=== PATIENT | female | born 1980 | race Asian ===

== ENCOUNTER → 2016-04-10 | Outpatient (CLI) | payer OTHER ==
[~2016-04-10] MED LIST: PRENTAB26 PO; VITAMINS D; fish oil
[2016-04-10 16:27] LABS: URINE APPEARANCE CLEAR (CLEAR); URINE BILIRUBIN NEG (NEG); URINE COLOR YELLOW; URINE EPITHELIAL CELL AUTO >30 /lpf (0-5); URINE NITRITE NEG (NEG); URINE PH 6.5 (4.5-7.5); URINE SPECIFIC GRAVITY 1.017 (1.000-1.030); UROBILINOGEN NEG (NEG)
[2016-04-10 16:28] LABS: MANUAL MICROSCOPIC REQUIRED? NO; REVIEW REQ? NO
[2016-04-10 16:34] LABS: GTGD 50 Grams
== END | disposition home or self-care (01) ==
LOC: C.LAB1850 13:35
PROVIDERS: ATTEND Obstetrics & Gynecology
DX: O09.529 Supervision of elderly multigravida, unspecified trimester (principal); Z3A.00 Weeks of gestation of pregnancy not specified

== ENCOUNTER → 2016-06-03 | Outpatient (CLI) | payer OTHER | END | disposition home or self-care (01) | LOC: C.LABSPEC 15:10 | PROVIDERS: ATTEND Obstetrics & Gynecology | DX: Z34.83 Encounter for supervision of other normal pregnancy, third trimester (principal) ==

== ENCOUNTER 2016-07-02 04:57 | Inpatient (IN) | payer OTHER ==
[~2016-07-02] VITALS: Ht 157.5 cm; Wt 66.4 kg
[2016-07-02] MEDS ORDERED: LACTATED RINGER'S 1000ML 1,000 ML IV PRN (09:29)
[2016-07-02] MEDS ORDERED: LACTATED RINGER'S 1000ML 1,000 ML IV SCH (09:29)
[2016-07-02] MEDS ORDERED: LACTATED RINGER'S 1000ML 500 ML IV PRN (09:32)
[2016-07-02] MEDS ORDERED: OXYTOCIN 30 UNITS/500ML NSS IV PRN ×3 (09:45→15:15)
[2016-07-02] MEDS ORDERED: PATIENT'S ALLERGY INFO NEEDS ENTERED SCH (10:00)
[2016-07-02 10:02] LABS: HEMATOCRIT 33.1 % (37-47); MEAN CELL VOLUME 92.2 fL (80-100); MEAN CORPUSCULAR HEMOGLOBIN 32.3 pg (25-34); MEAN PLATELET VOLUME 10.9 fL (7.4-10.4); PLATELET COUNT 156 K/uL (130-400); RED BLOOD COUNT 3.59 M/uL (4.2-5.4); WHITE BLOOD COUNT 13.09 K/uL (4.8-10.8)
[2016-07-02] MEDS ORDERED: PRENTAB26 PO (11:03)
[2016-07-02] MEDS ORDERED: VITAMINS D (11:03)
[2016-07-02] MEDS ORDERED: fish oil (11:03)
[2016-07-02 11:34] VITALS: Ht 157.5 cm; Wt 66.4 kg
[2016-07-02] MEDS ORDERED: EpHEDrine SULFATE INJ 50 MG/ML AMP ONE (13:49)
[2016-07-02] MEDS ORDERED: BUPIVACAINE 0.25% 30 ML VIAL ONE (13:49)
[2016-07-02] MEDS ORDERED: FENTANYL CITRATE INJ 50 MCG/1 ML 2 ML VIAL ONE (13:50)
[2016-07-02] MEDS ORDERED: FENTANYL 2MCG/ML ROPIV 1.25MG/ML 100ML BAG EPI ONE (13:50)
[2016-07-02] MEDS ORDERED: NURSING VERBAL MED ORDER ONE (14:15)
[2016-07-02] MEDS ORDERED: BUTORPHANOL TARTRATE 1 MG/ML VIAL IV ONE (14:20)
[2016-07-02] MEDS ORDERED: BUTORPHANOL TARTRATE 1 MG/ML VIAL ONE (14:24)
[2016-07-02] MEDS ORDERED: METHYLERGONOVINE MALEATE 0.2 MG/ML AMP ONE (15:10)
[2016-07-02] MEDS ORDERED: OXYCODONE/ACETAMINOPHEN 5-325 TAB PO PRN ×2 (15:15)
[2016-07-02] MEDS ORDERED: SUPERCREAM 0.870 % 15GM JAR EXT PRN ×2 (15:15)
[2016-07-02] MEDS ORDERED: DIPHTHERIA/TETANUS/PERTUSSIS 0.5 ML SYR/VIAL IM. ONE ×2 (15:15)
[2016-07-02] MEDS ORDERED: ACETAMINOPHEN 325 MG TAB PO PRN ×2 (15:15)
[2016-07-02] MEDS ORDERED: LANOLIN OINT EXT PRN ×4 (15:15)
[2016-07-02] MEDS ORDERED: METHYLERGONOVINE MALEATE 0.2 MG/ML AMP IM ONE ×2 (15:15)
[2016-07-02] MEDS ORDERED: BENZOCAINE 20% AER SPR 82.5 GM CAN EXT PRN ×2 (15:15)
[2016-07-02] MEDS ORDERED: ACETAMINOPHEN/CODEINE 300/30MG TAB PO PRN ×4 (15:15)
[2016-07-02] MEDS ORDERED: IBUPROFEN 600 MG TAB PO PRN (15:15)
[2016-07-02] MEDS ORDERED: HYDROCORTISONE ACETATE 25 MG SUPP PR PRN ×2 (15:15)
--- NOTE | 2016-07-02 15:26 | DELIVERY SUMMARY ---
DATE OF OPERATION: 07/02/2016 DELIVERY NOTE DATE OF DELIVERY: 07/02/2016. The patient is a 36-year-old 4, para 3, 1 spontaneous AB. Blood type is B positive. She is rubella immune. Beta strep negative. Her due date 07/03/2016. She was scheduled for induction today. Called early this morning said she thought her water had broken, came to maternity. She was Nitrazine positive, but she did have a bulging amniotic sac. She was given options for pain control, given IV and then was augmented with IV Pitocin. When she established a good regular labor per pattern at about 8 cm, membranes were ruptured surgically. Fluid was clear. She did receive 1 dose of IV Stadol. She went on to full dilatation and pushed out a live female infant via direct occiput anterior position over an intact perineum. was suctioned through the mouth and the nose. Shoulders were delivered without difficulty. Cord was clamped, cut by the father. Cord blood was taken. With IV Pitocin running, the placenta was removed intact. There was some uterine atony after this and this was managed with bimanual massage, IV Pitocin and IM Methergine. Inspection of the perineum revealed a first degree laceration. This was infiltrated with local and sewn with a 2-0 Vicryl. Vicryl 2-0 was used to approximate the bulbocavernosus muscle, vaginal mucosa was approximated with a running 2-0 Vicryl, the perineal skin edges were approximated with a running subcuticular suture of 2-0 Vicryl. Following this, vag exam, removed all remaining clots and rectovaginal examination revealed no stitches no stitches through the rectum. Estimated blood loss was 500 mL, 1 and 5 minute Apgars were 8 and 9 respectively. I attest to the content of the Intraoperative Record and any orders documented therein. Any exceptio ns are noted below.
[2016-07-02 17:15] VITALS: BP 110/81; PULSE 88; TEMP 37.1
[2016-07-02] MEDS: DOCUSATE SODIUM 100 MG CAP PO SCH (20:00)
[2016-07-02] MEDS ORDERED: DOCUSATE SODIUM 100 MG CAP PO SCH (20:00)
[2016-07-02 20:25] VITALS: BP 99/64; PULSE 111; TEMP 38.2; O2SAT 97
[2016-07-02 21:10] VITALS: TEMP 38.2
[2016-07-02 22:00] VITALS: TEMP 38.8
[2016-07-02] MEDS ORDERED: CEFOXITIN IV 2,000 MG in DEXTROSE 5% 50ML 50 ML IV SCH (22:15)
[2016-07-02 23:20] VITALS: BP 102/68; PULSE 104; TEMP 37.3; O2SAT 97
[2016-07-03] MEDS: IBUPROFEN 600 MG TAB PO PRN ×3 (01:37→22:17)
[2016-07-03 04:25] VITALS: BP 103/68; PULSE 89; TEMP 36.8; O2SAT 98
[2016-07-03] MEDS: CEFOXITIN IV 2,000 MG in DEXTROSE 5% 50ML 50 ML IV SCH ×3 (05:57→17:46)
[2016-07-03] MEDS: PRENATAL VITAMIN TAB PO SCH (08:00)
[2016-07-03] MEDS: FERROUS SULFATE 325 MG TAB PO SCH (08:00)
[2016-07-03] MEDS ORDERED: PRENATAL VITAMIN TAB PO SCH (08:00)
[2016-07-03] MEDS ORDERED: FERROUS SULFATE 325 MG TAB PO SCH (08:00)
[2016-07-03] MEDS: DOCUSATE SODIUM 100 MG CAP PO SCH ×2 (08:20→19:45)
[2016-07-03 08:28] LABS: HEMATOCRIT 31.9 % (37-47)
[2016-07-03 09:00] VITALS: BP 103/68; PULSE 94; TEMP 37.1; O2SAT 98
--- NOTE | 2016-07-03 12:46 | Progress Note ---
Subjective Jul 03, 2016. Subjective conversation w/ patient Ambulation: ambulating normally Voiding: no voiding problems Passing Gas: Yes Diet Tolerance: Regular Diet Lochia: Small Feeding Type: Breast Feeding Review of Systems Constitutional: + fever Objective Vital Signs Date Time Temp Pulse Resp B/P Pulse Ox O2 Delivery O2 Flow Rate FiO2 07/03/16 09:00 98 Room Air 07/03/16 09:00 37.1 94 18 103/68 98 Room Air 07/03/16 04:25 36.8 89 16 103/68 98 Room Air 07/02/16 23:20 97 Room Air 07/02/16 23:20 37.3 104 20 102/68 97 Room Air 07/02/16 21:10 38.2 07/02/16 20:25 38.2 111 20 99/64 97 Room Air 07/02/16 20:25 97 Room Air 07/02/16 17:15 37.1 88 16 110/81 Room Air Physical Exam General Appearance: WELL-APPEARING Abdomen: non tender Fundus: Firm, Non-Tender Extremities: no pedal edema, no calf tenderness Laboratory Results Last 24 Hours Test 07/03/16 08:04 Hemoglobin 10.9 g/dL Hematocrit 31.9 % Assessment and Plan Post- Day#: 1
[2016-07-03 13:00] VITALS: BP 100/63; PULSE 93; TEMP 37.2; O2SAT 99
[2016-07-03 16:30] VITALS: BP 114/76; PULSE 89; TEMP 36.7; O2SAT 98; O2SAT 99
[2016-07-03] MEDS ORDERED: BISACODYL 5 MG TABEC PO SCH ×2 (20:00)
[2016-07-03] MEDS ORDERED: NURSING VERBAL MED ORDER ONE (22:00)
[2016-07-03] MEDS ORDERED: BISACODYL 5 MG TABEC PO STA (22:31)
[2016-07-04 00:25] VITALS: BP 106/69; PULSE 115; TEMP 37.1; O2SAT 97
[2016-07-04] MEDS: CEFOXITIN IV 2,000 MG in DEXTROSE 5% 50ML 50 ML IV SCH ×2 (00:36→06:07)
[2016-07-04] MEDS ORDERED: BISACODYL 10 MG SUPP PR PRN ×2 (07:00)
[2016-07-04] MEDS: DOCUSATE SODIUM 100 MG CAP PO SCH (07:49)
[2016-07-04] MEDS: PRENATAL VITAMIN TAB PO SCH (07:50)
[2016-07-04] MEDS: FERROUS SULFATE 325 MG TAB PO SCH (07:50)
[2016-07-04 08:00] VITALS: BP 100/65; PULSE 90; TEMP 36.6; O2SAT 99
--- NOTE | 2016-07-04 09:14 | Progress Note ---
Subjective Jul 04, 2016. Subjective conversation w/ patient Ambulation: ambulating normally Voiding: no voiding problems Passing Gas: Yes Diet Tolerance: Regular Diet Lochia: Small Feeding Type: Breast Feeding Review of Systems Constitutional: + fever Objective Vital Signs Date Time Temp Pulse Resp B/P Pulse Ox O2 Delivery O2 Flow Rate FiO2 07/04/16 00:25 97 Room Air 07/04/16 00:25 37.1 115 20 106/69 97 Room Air 07/03/16 16:30 36.7 89 18 114/76 98 Room Air 07/03/16 16:30 99 Room Air 07/03/16 13:00 37.2 93 16 100/63 99 Room Air Physical Exam General Appearance: WELL-APPEARING Abdomen: non tender Fundus: Firm, Non-Tender Extremities: no pedal edema, no calf tenderness Assessment and Plan Post- Day#: 2
--- NOTE | 2016-07-04 09:18 | Discharge Instructions ---
Discharge Instructions Date of Service Jul 04, 2016. Admission Reason for Admission: Induction Discharge Discharge Diagnosis / Problem: active labor Discharge Goals Goal(s): Routine recovery after delivery Activity Recommendations Activity Limitations: as noted below ACTIVITY RECOMMENDATIONS: * Gradual return to full activity over the next 2-3 weeks. * No lifting - nothing heavier than baby over the next 2-3 weeks. * Do not engage in vigorous exercise, sexual activity or sports until cleared by your physician. * Do not drive or operate any motorized equipment until cleared by your physician. * You may shower/bathe daily. DIET: Resume Previous Diet If Breast-feeding: * Increase caloric intake by 500 calories, eat 3 well balanced meals, 2 high protein snacks a day and drink 6-8 8oz. glasses of fluid per day. BREAST CARE: If you are not breast feeding: * Wear a supportive bra 24 hours a day for one to two weeks. * Avoid stimulating your breasts and nipples as much as possible during the first few weeks after delivery. * When taking a shower, have the warm water hit your back, not breasts. * When your breasts feel full, apply ice packs. Usually three to four times a day helps ease the discomfort. * Take a mild pain medication (Tylenol / Motrin) when you are uncomfortable. If breast feeding: * Use breast milk to lubricate nipples. Lansinoh cream may be used for sore nipples. You do not need to remove cream prior to breast feeding. If using a different brand of cream, check the label for directions regarding removal of cream prior to nursing. * Wear a supportive bra. * If having problems with breasts or breast feeding, call a talent development consultant or your health care provider. OVER THE COUNTER MEDICATION: * For discomfort or pain, you may use Acetaminophen (Tylenol), Ibuprofen (Advil ), or Naproxen (Aleve) following the package directions. * For constipation you may use Colace following the package directions. SPECIAL CARE INSTRUCTIONS: * Vaginal rest (no tampons, douching, intercourse) until after doctor 's visit. * control as discussed with doctor. * Verbalizes understanding of car seat law as reviewed with patient nursing. * Car Seat hand-out given and reviewed with patient by nursing. * Shaken baby information reviewed with patient by nursing. Call you doctor if: * Temperature greater than or equal to 100.4 degrees F or 38.0 degrees C. Take your temperature twice daily for a week. * Bleeding becomes heavier than the heaviest part of your period - saturating a sanitary pad within an hour. * Passing large clots. * Bleeding has a foul smelling odor. * Signs and symptoms of phlebitis: leg pain, warm, red or swollen area on leg. * "Baby Blues" lasting longer than two weeks. ++ If you have had a and incision has increased pain, redness, swelling, presence of any drainage, or if the incision starts to open up. If you have any questions or concerns, call your health care practitioner at [phone]. FOLLOW-UP VISIT: Please call the office at to schedule a 6 week examination. . Instructions / Follow-Up Instructions / Follow-Up ACTIVITY RECOMMENDATIONS: * Gradual return to full activity over the next 2-3 weeks. * No lifting - nothing heavier than baby over the next 2-3 weeks. * Do not engage in vigorous exercise, sexual activity or sports until cleared by your physician. * Do not drive or operate any motorized equipment until cleared by your physician. * You may shower/bathe daily. DIET: Resume Previous Diet If Breast-feeding: * Increase caloric intake by 500 calories, eat 3 well balanced meals, 2 high protein snacks a day and drink 6-8 8oz. glasses of fluid per day. BREAST CARE: If you are not breast feeding: * Wear a supportive bra 24 hours a day for one to two weeks. * Avoid stimulating your breasts and nipples as much as possible during the first few weeks after delivery. * When taking a shower, have the warm water hit your back, not breasts. * When your breasts feel full, apply ice packs. Usually three to four times a day helps ease the discomfort. * Take a mild pain medication (Tylenol / Motrin) when you are uncomfortable. If breast feeding: * Use breast milk to lubricate nipples. Lansinoh cream may be used for sore nipples. You do not need to remove cream prior to breast feeding. If using a different brand of cream, check the label for directions regarding removal of cream prior to nursing. * Wear a supportive bra. * If having problems with breasts or breast feeding, call a talent development consultant or your health care provider. OVER THE COUNTER MEDICATION: * For discomfort or pain, you may use Acetaminophen (Tylenol), Ibuprofen (Advil ), or Naproxen (Aleve) following the package directions. * For constipation you may use Colace following the package directions. SPECIAL CARE INSTRUCTIONS: * Vaginal rest (no tampons, douching, intercourse) until after doctor 's visit. * control as discussed with doctor. * Verbalizes understanding of car seat law as reviewed with patient nursing. * Car Seat hand-out given and reviewed with patient by nursing. * Shaken baby information reviewed with patient by nursing. Call you doctor if: * Temperature greater than or equal to 100.4 degrees F or 38.0 degrees C. Take your temperature twice daily for a week. * Bleeding becomes heavier than the heaviest part of your period - saturating a sanitary pad within an hour. * Passing large clots. * Bleeding has a foul smelling odor. * Signs and symptoms of phlebitis: leg pain, warm, red or swollen area on leg. * "Baby Blues" lasting longer than two weeks. ++ If you have had a and incision has increased pain, redness, swelling, presence of any drainage, or if the incision starts to open up. If you have any questions or concerns, call your health care practitioner at [phone]. FOLLOW-UP VISIT: Please call the office at to schedule a 6 week examination. Current Hospital Diet Patient's current hospital diet: Regular Diet Discharge Diet Recommended Diet: Regular Diet Pending Studies Studies pending at discharge: no Medical Emergencies . Who to Call and When: Medical Emergencies: If at any time you feel your situation is an emergency, please call 911 immediately. . Non-Emergent Contact Non-Emergency issues call your: Filter Cloth Maker Call Non-Emergent contact if: temperature is above 100.5 . . "Provider Documentation" section prepared by Deng Javier. . VTE Core Measure Inpt VTE Proph given/why not?: Treatment not indicated
[2016-07-04] MEDS: IBUPROFEN 600 MG TAB PO PRN (09:50)
[2016-07-04 16:20] VITALS: BP_DIAS 65; PULSE 90; TEMP 36.6
[2016-07-04] MEDS ORDERED: BISACODYL 5 MG TABEC PO SCH (22:00)
== END 2016-07-04 15:20 | disposition home or self-care (01) | DRG 774 ==
LOC: C.LD 09:13 → C.OBG 17:25
PROVIDERS: ADMIT Obstetrics & Gynecology; ATTEND Obstetrics & Gynecology
PROC: 0HQ9XZZ Repair Perineum Skin, External Approach (ICD-10-PCS; principal; 2016-07-02)
PROC: 10E0XZZ Delivery of Products of Conception, External Approach (ICD-10-PCS; principal; 2016-07-02)
DX: O72.1 Other immediate postpartum hemorrhage (principal); O70.0 First degree perineal laceration during delivery; Z3A.39 39 weeks gestation of pregnancy; Z37.0 Single live birth

== ENCOUNTER → 2016-08-21 | Outpatient (CLI) | payer OTHER | END | disposition home or self-care (01) | LOC: C.PAPS 09:46 | PROVIDERS: ATTEND Obstetrics & Gynecology | DX: Z39.2 Encounter for routine postpartum follow-up (principal) ==